=== PATIENT | male | born 1945 | race Caucasian/White ===

== ENCOUNTER 2018-03-05 16:44 | Outpatient (REF) | payer MEDICARE, SELFPAY ==
[2018-03-05 20:50] LABS: COMMENT (LAB VIEW ONLY) 171.51 mg/dL; Microalb ug/mg Crea 114.7 ug/mg Cr
== END 2018-03-05 17:04 ==
LOC: NCHCN 16:44
PROVIDERS: PCP Physician Assistant; Visit Provider Physician Assistant Medical
DX: E11.9 Type 2 diabetes mellitus without complications (principal)
CPT/HCPCS: 82043; 82570

== ENCOUNTER 2018-06-30 15:23 | Outpatient (REF) | payer MEDICARE, SELFPAY ==
[2018-06-30 19:02] LABS: HCT 35.8 % (40.0-50.0); HGB 11.4 g/dL (13.5-17.5); Mean Corp. HGB Concentration 31.8 g/dL (32.0-36.0); Mean Corpuscular Hemoglobin 27.1 pg (27.0-33.0); Mean Corpuscular Volume 85.2 fL (80-95); Mean Platelet Volume 10.8 fL (8.0-11.0); Platelet Count 224 x1000/uL (130-400); RBC Distribution Width 14.5 % (11.8-14.1); White Blood Cell Count 9.29 k/cumm (4.4-10.8)
[2018-06-30 19:15] LABS: ALT 21 U/L (12-78); AST 16 U/L (15-37); Albumin 3.3 g/dL (3.4-5.0); Alkaline Phosphatase 89 U/L (46-116); Anion Gap 8.7 mmol/L (3-11); BUN 15 mg/dL (7-18); Bilirubin, Total 1.2 mg/dL (0.2-1.0); CO2 30.3 mmol/L (21.0-32.0); Calcium 8.3 mg/dL (8.5-10.1); Chloride 100 mmol/L (98-107); Glucose 102 mg/dL (70-100); Potassium 3.8 mmol/L (3.5-5.1); Sodium 139 mmol/L (136-145); Total Protein 6.3 g/dL (6.4-8.2)
== END 2018-06-30 15:43 ==
LOC: NCHCN 15:23
PROVIDERS: PCP Physician Assistant; Visit Provider Physician Assistant Medical
DX: K59.00 Constipation, unspecified (principal); R19.5 Other fecal abnormalities
CPT/HCPCS: 80053; 85027

== ENCOUNTER 2018-09-02 16:14 | Outpatient (REF) | payer MEDICARE, SELFPAY ==
[2018-09-02 19:20] LABS: Iron 36 ug/dL (50-175); Total Iron Binding Capacity 346 ug/dL (250-450); Transferrin Sat 10 % (20-55)
[2018-09-02 19:40] LABS: Ferritin 21 ng/mL (8-388); Vitamin B12 246 pg/mL (193-986)
== END 2018-09-02 16:34 ==
LOC: NCHCN 16:14
PROVIDERS: PCP Physician Assistant; Visit Provider Physician Assistant Medical
DX: D64.9 Anemia, unspecified (principal)
CPT/HCPCS: 82607; 82728; 83540; 83550

== ENCOUNTER → 2018-12-29 11:06 | Outpatient (BNVA) | payer MEDICARE, SELFPAY | PROVIDERS: PCP Physician Assistant; Referring Provider Physician Assistant; Visit Provider Nurse Practitioner Gerontology | DX: N43.3 Hydrocele, unspecified (principal); E11.9 Type 2 diabetes mellitus without complications; I10 Essential (primary) hypertension; Z79.84 Long term (current) use of oral hypoglycemic drugs | CPT/HCPCS: 99204 ==

== ENCOUNTER 2019-04-17 16:08 | Outpatient (REF) | payer MEDICARE, SELFPAY ==
[2019-04-17 18:29] LABS: Anion Gap 5.4 mmol/L (3-11); BUN 23 mg/dL (7-18); CO2 34.6 mmol/L (21.0-32.0); CREATININE 1.33 mg/dL (0.70-1.30); Calcium 8.1 mg/dL (8.5-10.1); Chloride 103 mmol/L (98-107); Glucose 168 mg/dL (74-106); Potassium 3.9 mmol/L (3.5-5.1); Sodium 143 mmol/L (136-145); TSH (W/Ref FT4) 1.72 uIU/mL (0.36-3.74)
== END 2019-04-17 16:28 ==
LOC: NCHCN 16:08
PROVIDERS: PCP Physician Assistant; Visit Provider Physician Assistant
DX: I10 Essential (primary) hypertension (principal)
CPT/HCPCS: 80048; 83735; 84443

== ENCOUNTER → 2019-07-29 10:26 | Outpatient (BNVA) | payer MEDICARE, MEDICAID, SELFPAY | PROVIDERS: PCP Physician Assistant; Referring Provider Physician Assistant; Visit Provider Nurse Practitioner Gerontology | DX: N43.3 Hydrocele, unspecified (principal); E11.9 Type 2 diabetes mellitus without complications; I10 Essential (primary) hypertension | CPT/HCPCS: 99213 ==

== ENCOUNTER 2020-02-17 11:36 | Outpatient (REF) | payer MEDICARE, MEDICAID, SELFPAY ==
[2020-02-17 20:50] LABS: Abs Immature Grans 0.02 10^3/uL (0.0-0.06); Absolute Basophil Count 0.07 10^3/uL (0.0-0.2); Absolute Eosinophil Count 0.25 10^3/uL (0.0-0.7); Absolute Lymphocyte Count 2.12 10^3/uL (1.2-3.4); Absolute Monocyte Count 0.72 10^3/uL (0.1-0.8); Absolute Neutrophil Count 5.18 10^3/uL (1.2-6.7); Basophils % 0.8; HCT 37.6 % (40.0-50.0); HGB 12.4 g/dL (13.5-17.5); Immature Grans % 0.2; Lymphocytes % 25.4; MCV 88.1 fL (80-95); MPV 10.7 fL (8.0-11.0); Monocytes % 8.6; Nucleated RBC 0 %; Platelet Count 255 10^3/uL (130-400); RBC 4.27 10^6/uL (4.36-5.78); RDW 12.9 % (11.8-14.1); RDW-SD 41.4 fL; WBC 8.36 10^3/uL (4.4-10.8)
[2020-02-17 21:21] LABS: COMMENT (LAB VIEW ONLY) 95.56 mg/dL; Microalb ug/mg Crea 11.3 ug/mg Cr
[2020-02-17 21:22] LABS: Hemoglobin A1C 7.3 % (<5.7)
[2020-02-17 21:24] LABS: ALT 22 U/L (16-63); AST 13 U/L (15-37); Albumin 3.6 g/dL (3.4-5.0); Alkaline Phosphatase 85 U/L (46-116); Anion Gap 10.3 mmol/L (3-11); BUN 35 mg/dL (7-18); Bilirubin, Total 0.7 mg/dL (0.2-1.0); CO2 26.7 mmol/L (21.0-32.0); Calcium 8.7 mg/dL (8.5-10.1); Calculated LDL 73 mg/dL (<100); Chloride 100 mmol/L (98-107); Cholesterol 152 mg/dL (<200); Estimated GFR 39.82 (mL/min/1.73m2); Glucose 181 mg/dL (74-106); HDL Cholesterol 31 mg/dL (40-60); Potassium 4.6 mmol/L (3.5-5.1); Sodium 137 mmol/L (136-145); TSH (W/Ref FT4) 2.12 uIU/mL (0.36-3.74); Total Protein 6.5 g/dL (6.4-8.2); Triglyceride 240 mg/dL (<150)
== END 2020-02-17 11:56 ==
LOC: NCHCN 11:36
PROVIDERS: PCP Physician Assistant; Visit Provider Physician Assistant
DX: I10 Essential (primary) hypertension (principal); E11.9 Type 2 diabetes mellitus without complications; I25.10 Atherosclerotic heart disease of native coronary artery without angina pectoris; G47.30 Sleep apnea, unspecified; M25.562 Pain in left knee; J44.9 Chronic obstructive pulmonary disease, unspecified; E66.9 Obesity, unspecified
CPT/HCPCS: 80053; 80061; 82043; 82570; 83036; 84443; 85025

== ENCOUNTER 2020-02-25 22:25 | Outpatient (REF) | payer MEDICARE, MEDICAID, SELFPAY ==
[2020-02-29 15:28] LABS: Albumin, Urine % 19.5 % ((See Note)); Globulins, Urine % 80.5 %; Immunotyping, Urine (See Note); Total Protein Urine 10 mg/dL (See Note)
== END 2020-02-25 22:45 ==
LOC: NCHCN 22:25
PROVIDERS: PCP Physician Assistant; Visit Provider Physician Assistant
DX: N18.32 Chronic kidney disease, stage 3b (principal); E11.9 Type 2 diabetes mellitus without complications; I10 Essential (primary) hypertension
CPT/HCPCS: 84156; 84166; 86335

== ENCOUNTER → 2020-08-03 10:35 | Outpatient (BNVA) | payer MEDICARE, MEDICAID, SELFPAY | PROVIDERS: PCP Physician Assistant; Referring Provider Physician Assistant; Visit Provider Nurse Practitioner Gerontology | DX: N43.2 Other hydrocele (principal) | CPT/HCPCS: 99214 ==

== ENCOUNTER 2021-02-24 16:14 | Outpatient (REF) | payer MEDICARE, MEDICAID, SELFPAY ==
[2021-02-24 20:16] LABS: Anion Gap 7.9 mmol/L (3-11); BUN 37 mg/dL (7-18); CO2 28.1 mmol/L (21.0-32.0); CREATININE 1.6 mg/dL (0.70-1.30); Chloride 102 mmol/L (98-107); Estimated GFR 42.58 (mL/min/1.73m2); Glucose 141 mg/dL (74-106); Potassium 4.6 mmol/L (3.5-5.1); Sodium 138 mmol/L (136-145)
[2021-02-24 20:23] LABS: COMMENT (LAB VIEW ONLY) 16.39 mg/dL; Microalb ug/mg Crea 28.1 ug/mg Cr
== END 2021-02-24 16:15 | disposition home or self-care (01) ==
LOC: NCHCN 16:14
PROVIDERS: PCP Physician Assistant; Visit Provider Physician Assistant
DX: E11.9 Type 2 diabetes mellitus without complications (principal); N18.32 Chronic kidney disease, stage 3b
CPT/HCPCS: 80048; 82043; 82570

== ENCOUNTER → 2021-08-08 14:32 | Outpatient (BNVA) | payer MEDICARE, MEDICAID, SELFPAY | PROVIDERS: PCP Physician Assistant; Referring Provider Physician Assistant; Visit Provider Nurse Practitioner Gerontology | DX: N43.3 Hydrocele, unspecified (principal) | CPT/HCPCS: 99214 ==

== ENCOUNTER 2022-02-21 16:14 | Outpatient (REF) | payer MEDICARE, MEDICAID, SELFPAY ==
[2022-02-21 20:59] LABS: Abs Immature Grans 0.03 10^3/uL (0.0-0.06); Absolute Basophil Count 0.07 10^3/uL (0.0-0.2); Absolute Eosinophil Count 0.22 10^3/uL (0.0-0.7); Absolute Lymphocyte Count 1.82 10^3/uL (1.2-3.4); Absolute Monocyte Count 0.72 10^3/uL (0.1-0.8); Absolute Neutrophil Count 5.97 10^3/uL (1.2-6.7); Basophils % 0.8; Eosinophils % 2.5; HGB 13.3 g/dL (13.5-17.5); Immature Grans % 0.3; Lymphocytes % 20.6; MCH 27.8 pg (27.0-33.0); MCHC 32.4 % (32.0-36.0); MCV 86 fL (80-95); MPV 10.7 fL (8.0-11.0); Monocytes % 8.2; Neutrophils % 67.6; Platelet Count 240 10^3/uL (130-400); RBC 4.79 10^6/uL (4.36-5.78); RDW 13.8 % (11.8-14.1); RDW-SD 43.1 fL; WBC 8.83 10^3/uL (4.4-10.8)
[2022-02-21 21:24] LABS: ALT 18 U/L (16-63); AST 20 U/L (15-37); Albumin 3.6 g/dL (3.4-5.0); Alkaline Phosphatase 82 U/L (46-116); Anion Gap 7.7 mmol/L (3-11); BUN 27 mg/dL (7-18); Bilirubin, Total 0.6 mg/dL (0.2-1.0); CO2 29.3 mmol/L (21.0-32.0); CREATININE 1.7 mg/dL (0.70-1.30); Chloride 100 mmol/L (98-107); Estimated GFR 41.78 (mL/min/1.73m2); Glucose 139 mg/dL (74-106); Potassium 4.3 mmol/L (3.5-5.1); Sodium 137 mmol/L (136-145); Total Protein 6.9 g/dL (6.4-8.2)
== END 2022-02-21 16:15 | disposition home or self-care (01) ==
LOC: NCHCN 16:14
PROVIDERS: PCP Physician Assistant; Visit Provider Physician Assistant
DX: I50.9 Heart failure, unspecified (principal)
CPT/HCPCS: 80053; 85025

== ENCOUNTER → 2022-08-07 14:29 | Outpatient (BNVA) | payer MEDICARE, MEDICAID, SELFPAY | PROVIDERS: PCP Physician Assistant; Visit Provider Nurse Practitioner Gerontology | DX: N43.3 Hydrocele, unspecified (principal); R39.89 Other symptoms and signs involving the genitourinary system | CPT/HCPCS: 99213 ==

== ENCOUNTER 2022-11-16 16:31 | Outpatient (REF) | payer MEDICARE, MEDICAID, SELFPAY ==
[2022-11-16 18:46] LABS: Abs Immature Grans 0.03 10^3/uL (0.0-0.06); Absolute Basophil Count 0.07 10^3/uL (0.0-0.2); Absolute Eosinophil Count 0.11 10^3/uL (0.0-0.7); Absolute Lymphocyte Count 1.16 10^3/uL (1.2-3.4); Absolute Monocyte Count 0.66 10^3/uL (0.1-0.8); Absolute Neutrophil Count 6.56 10^3/uL (1.2-6.7); Basophils % 0.8; Eosinophils % 1.3; HCT 38.6 % (40.0-50.0); Immature Grans % 0.3; Lymphocytes % 13.5; MCH 28.6 pg (27.0-33.0); MCHC 33.7 % (32.0-36.0); MCV 85 fL (80-95); MPV 10.6 fL (8.0-11.0); Monocytes % 7.7; Neutrophils % 76.4; Platelet Count 238 10^3/uL (130-400); RBC 4.55 10^6/uL (4.36-5.78); RDW-SD 43.3 fL; WBC 8.59 10^3/uL (4.4-10.8)
[2022-11-16 19:01] LABS: Anion Gap 8.6 mmol/L (3-11); BUN 19 mg/dL (7-18); CO2 30.4 mmol/L (21.0-32.0); CREATININE 1.5 mg/dL (0.70-1.30); Calcium 8.6 mg/dL (8.5-10.1); Chloride 103 mmol/L (98-107); Estimated GFR 48.25 (mL/min/1.73m2); Glucose 179 mg/dL (74-106); Sodium 142 mmol/L (136-145)
[2022-11-16 19:09] LABS: Bilirubin Negative (Negative); Blood Small (Negative); Clarity Clear (Clear); Glucose Negative (Negative); Ketones Negative (Negative); Leukocyte Esterase Negative (Negative); Nitrite Negative (Negative); Urobilinogen 0.2 mg/dL (Up to 0.2); pH 5.5 (5-8)
[2022-11-17 07:53] LABS: Bacteria Negative HPF (Negative); C & S Indicated? No; Casts 0-2 Hyaline LPF (Negative); Crystals Mod Calcium Oxalate HPF (Negative); Epithelial Cells Rare HPF (Negative); Mucus Trace (Negative); WBC Negative HPF (0-5)
[2022-11-19 10:09] LABS: PSA, Diagnostic 1.1 ng/mL (<=6.5)
== END 2022-11-16 16:32 | disposition home or self-care (01) ==
LOC: NCHCN 16:31
PROVIDERS: PCP Physician Assistant; Visit Provider Internal Medicine
DX: N18.32 Chronic kidney disease, stage 3b (principal); R31.0 Gross hematuria; R79.89 Other specified abnormal findings of blood chemistry
CPT/HCPCS: 80048; 81003; 81015; 84153; 85025; 87086

== ENCOUNTER → 2022-11-22 13:26 | Outpatient (CLI) | payer MEDICARE, MEDICAID, SELFPAY ==
--- NOTE | 2022-11-22 | DI.US_ITS ---
Exam(s) US RENAL EXAM: US RENAL CLINICAL HISTORY: HEMATURIA R31.0. TECHNIQUE: Bean scale, color and spectral Doppler were used. COMPARISON: US US SCROTUM AND CONTENTS from 11/06/2018 FINDINGS: Exam limited by patient body habitus. Renal size in cm: Right: 11.2 left: 12.1 Echogenicity: Normal Hydronephrosis: No Cyst or mass: No Nephrolithiasis: No Bladder:Normal. Both ureteral jets visualized. Prevoid vol:322 Postvoid vol:7 Prostate not visualized. IMPRESSION: No evidence hydronephrosis. No large stones visible. Stones would easily be missed due to due to limitations of patient body hab itus. If there is continued concern, CT could be performed. DATA REPOSITORY:
== END ==
PROVIDERS: PCP Physician Assistant; Visit Provider Internal Medicine
DX: R31.0 Gross hematuria (principal)
CPT/HCPCS: 76770

== ENCOUNTER → 2023-01-07 15:23 | Outpatient (BNVA) | payer MEDICARE, MEDICAID, SELFPAY | PROVIDERS: PCP Physician Assistant; Referring Provider Physician Assistant; Visit Provider Nurse Practitioner Gerontology | DX: R31.0 Gross hematuria (principal) | CPT/HCPCS: 99213 ==

== ENCOUNTER → 2023-01-09 15:09 | Outpatient (BNVA) | payer MEDICARE, MEDICAID, SELFPAY | PROVIDERS: PCP Physician Assistant; Referring Provider Physician Assistant; Visit Provider Podiatrist | DX: L60.0 Ingrowing nail (principal); B35.1 Tinea unguium; B35.3 Tinea pedis; L60.3 Nail dystrophy; E11.319 Type 2 diabetes mellitus with unspecified diabetic retinopathy without macular edema; R60.0 Localized edema; M79.672 Pain in left foot; M79.671 Pain in right foot | CPT/HCPCS: 11750 ==

== ENCOUNTER → 2023-01-24 15:30 | Outpatient (BNVA) | payer MEDICARE, MEDICAID, SELFPAY | PROVIDERS: PCP Physician Assistant; Referring Provider Physician Assistant; Visit Provider Podiatrist | DX: L60.0 Ingrowing nail (principal); B35.3 Tinea pedis; L60.3 Nail dystrophy; E11.319 Type 2 diabetes mellitus with unspecified diabetic retinopathy without macular edema; R60.0 Localized edema; M79.672 Pain in left foot; M79.671 Pain in right foot | CPT/HCPCS: 11750 ==

== ENCOUNTER 2023-03-05 15:11 | Outpatient (REF) | payer MEDICARE, MEDICAID, SELFPAY ==
[2023-03-05 19:10] LABS: Hemoglobin A1C 6.7 % (<5.7)
[2023-03-05 19:33] LABS: COMMENT (LAB VIEW ONLY) 16.56 mg/dL; Microalb ug/mg Crea 32.6 ug/mg Cr
== END 2023-03-05 15:12 | disposition home or self-care (01) ==
LOC: NCHCN 15:11
PROVIDERS: PCP Physician Assistant; Visit Provider Physician Assistant
DX: E11.9 Type 2 diabetes mellitus without complications (principal)
CPT/HCPCS: 82043; 82570; 83036

== ENCOUNTER → 2023-04-29 13:51 | Outpatient (BNVA) | payer MEDICARE, MEDICAID, SELFPAY | PROVIDERS: PCP Physician Assistant; Referring Provider Physician Assistant; Visit Provider Student in an Organized Health Care Education/Training Program | DX: M19.072 Primary osteoarthritis, left ankle and foot (principal) | CPT/HCPCS: 99213 ==

== ENCOUNTER → 2023-07-03 12:35 | Outpatient (BNVA) | payer MEDICARE, SELFPAY | PROVIDERS: PCP Physician Assistant; Referring Provider Physician Assistant; Visit Provider Nurse Practitioner Adult Health | DX: R41.89 Other symptoms and signs involving cognitive functions and awareness (principal) | CPT/HCPCS: 99215 ==

== ENCOUNTER → 2023-09-26 12:11 | Outpatient (BNVA) | payer MEDICARE, SELFPAY | PROVIDERS: PCP Physician Assistant; Referring Provider Physician Assistant; Visit Provider Nurse Practitioner Gerontology | DX: R31.0 Gross hematuria (principal); N43.3 Hydrocele, unspecified | CPT/HCPCS: 81003; 99213 ==

== ENCOUNTER 2023-12-11 16:37 | Outpatient (REF) | payer MEDICARE, SELFPAY ==
[2023-12-11 20:33] LABS: Abs Immature Grans 0.02 10^3/uL (0.0-0.06); Absolute Basophil Count 0.09 10^3/uL (0.0-0.2); Absolute Eosinophil Count 0.28 10^3/uL (0.0-0.7); Absolute Lymphocyte Count 1.64 10^3/uL (1.2-3.4); Absolute Monocyte Count 0.63 10^3/uL (0.1-0.8); Absolute Neutrophil Count 4.65 10^3/uL (1.2-6.7); Basophils % 1.2 %; Eosinophils % 3.8 %; HCT 37.5 % (40.0-50.0); HGB 12.4 g/dL (13.5-17.5); Immature Grans % 0.3 %; Lymphocytes % 22.4 %; MCH 29.2 pg (27.0-33.0); MCHC 33.1 % (32.0-36.0); MCV 88 fL (80-95); MPV 10.4 fL (8.0-11.0); Monocytes % 8.6 %; Neutrophils % 63.7 %; Platelet Count 222 10^3/uL (130-400); RBC 4.24 10^6/uL (4.36-5.78); RDW 13.9 % (11.8-14.1); RDW-SD 44.9 fL; WBC 7.31 10^3/uL (4.4-10.8)
[2023-12-11 20:42] LABS: ALT 21 U/L (16-63); AST 18 U/L (15-37); Albumin 3.4 g/dL (3.4-5.0); Alkaline Phosphatase 88 U/L (46-116); BUN 45 mg/dL (7-18); Bilirubin, Total 0.79 mg/dL (0.2-1.0); CREATININE 2.3 mg/dL (0.70-1.30); Chloride 101 mmol/L (98-107); Estimated GFR 28.71 (mL/min/1.73m2); Glucose 109 mg/dL (74-106); Potassium 4.5 mmol/L (3.5-5.1); Sodium 136 mmol/L (136-145); Total Protein 6.8 g/dL (6.4-8.2)
== END 2023-12-11 16:38 | disposition home or self-care (01) ==
LOC: NCHCN 16:37
PROVIDERS: PCP Physician Assistant; Visit Provider Physician Assistant
DX: E11.9 Type 2 diabetes mellitus without complications (principal)
CPT/HCPCS: 80053; 85025

== ENCOUNTER 2024-03-19 15:17 | Outpatient (REF) | payer MEDICARE, SELFPAY ==
[2024-03-19 19:38] LABS: Bilirubin Negative (Negative); Blood Trace-intact (Negative); Clarity Clear (Clear); Glucose Negative (Negative); Ketones Negative (Negative); Leukocyte Esterase Negative (Negative); Nitrite Negative (Negative); Specific Gravity 1.015 (1.005-1.025); Urobilinogen 0.2 mg/dL (Up to 0.2); pH 5.5 (5-8)
[2024-03-19 19:43] LABS: Bacteria Rare HPF (Negative); C & S Indicated? No; Casts Negative LPF (Negative); Crystals Negative HPF (Negative); Epithelial Cells Rare HPF (Negative); Mucus Negative (Negative); RBC 0-2 HPF (0-2); WBC Negative HPF (0-5)
[2024-03-19 19:51] LABS: Anion Gap 8.3 mmol/L (3-11); BUN 42 mg/dL (7-18); CO2 26.7 mmol/L (21.0-32.0); CREATININE 2.2 mg/dL (0.70-1.30); Calcium 9.4 mg/dL (8.5-10.1); Chloride 107 mmol/L (98-107); Estimated GFR 30.28 (mL/min/1.73m2); Glucose 155 mg/dL (74-106); LDL CHOLESTEROL 77 mg/dL (<100); Potassium 5.1 mmol/L (3.5-5.1); Sodium 142 mmol/L (136-145)
[2024-03-19 20:07] LABS: COMMENT (LAB VIEW ONLY) 31.43 mg/dL; PROTEIN 6.3 mg/dL
== END 2024-03-19 15:18 | disposition home or self-care (01) ==
LOC: NCHCN 15:17
PROVIDERS: PCP Physician Assistant; Visit Provider Physician Assistant
DX: E78.5 Hyperlipidemia, unspecified (principal)
CPT/HCPCS: 80048; 83721; 81003; 81015; 82565; 84156

== ENCOUNTER 2024-04-21 17:06 | Outpatient (REF) | payer MEDICARE, SELFPAY ==
[2024-04-21 19:20] LABS: Abs Immature Grans 0.02 10^3/uL (0.0-0.06); Absolute Basophil Count 0.08 10^3/uL (0.0-0.2); Absolute Eosinophil Count 0.18 10^3/uL (0.0-0.7); Absolute Lymphocyte Count 1.43 10^3/uL (1.2-3.4); Absolute Monocyte Count 0.58 10^3/uL (0.1-0.8); Absolute Neutrophil Count 5.36 10^3/uL (1.2-6.7); Eosinophils % 2.4 %; HCT 36.4 % (40.0-50.0); HGB 11.9 g/dL (13.5-17.5); Immature Grans % 0.3 %; Lymphocytes % 18.7 %; MCH 28.8 pg (27.0-33.0); MCHC 32.7 % (32.0-36.0); MCV 88 fL (80-95); MPV 10.4 fL (8.0-11.0); Monocytes % 7.6 %; Platelet Count 231 10^3/uL (130-400); RBC 4.13 10^6/uL (4.36-5.78); RDW 13.6 % (11.8-14.1); RDW-SD 44.4 fL; WBC 7.65 10^3/uL (4.4-10.8)
[2024-04-21 19:43] LABS: Anion Gap 10.2 mmol/L (3-11); BUN 43 mg/dL (7-18); CO2 26.8 mmol/L (21.0-32.0); CREATININE 2.5 mg/dL (0.70-1.30); Calcium 9.2 mg/dL (8.5-10.1); Chloride 105 mmol/L (98-107); Estimated GFR 25.98 (mL/min/1.73m2); Ferritin 86 ng/mL (26-388); Glucose 141 mg/dL (74-106); Magnesium 1.6 mg/dL (1.8-2.4); Potassium 4.2 mmol/L (3.5-5.1); Sodium 142 mmol/L (136-145)
[2024-04-21 19:47] LABS: Bilirubin Small (Negative); Blood Large (Negative); Clarity Cloudy (Clear); Glucose Negative (Negative); Ketones 15 mg/dL (Negative); Leukocyte Esterase Negative (Negative); Nitrite Negative (Negative); Urobilinogen 0.2 mg/dL (Up to 0.2); pH 5.5 (5-8)
[2024-04-21 19:53] LABS: Bacteria Many HPF (Negative); C & S Indicated? C&S Done As Ordered; Casts Negative LPF (Negative); Crystals Negative HPF (Negative); Epithelial Cells Few HPF (Negative); Mucus Moderate (Negative); Other Cells Negative (Negative); RBC >50 HPF (0-2)
[2024-04-21 20:51] LABS: Iron 48 ug/dL (65-175)
== END 2024-04-21 17:07 | disposition home or self-care (01) ==
LOC: NCHCN 17:06
PROVIDERS: PCP Physician Assistant; Visit Provider Physician Assistant
DX: R31.29 Other microscopic hematuria; D50.9 Iron deficiency anemia, unspecified
CPT/HCPCS: 80048; 81003; 81015; 82728; 83540; 83550; 83735; 85025; 87086

== ENCOUNTER 2024-04-30 13:35 | Outpatient (REF) | payer MEDICARE, SELFPAY ==
[2024-04-30 19:21] LABS: Anion Gap 8.6 mmol/L (3-11); BUN 49 mg/dL (7-18); CO2 27.4 mmol/L (21.0-32.0); CREATININE 2.2 mg/dL (0.70-1.30); Calcium 9.2 mg/dL (8.5-10.1); Chloride 105 mmol/L (98-107); Estimated GFR 30.28 (mL/min/1.73m2); Glucose 149 mg/dL (74-106); Magnesium 1.8 mg/dL (1.8-2.4); Potassium 4.2 mmol/L (3.5-5.1); Sodium 141 mmol/L (136-145)
== END 2024-04-30 13:36 | disposition home or self-care (01) ==
LOC: NCHCN 13:35
PROVIDERS: PCP Physician Assistant; Visit Provider Physician Assistant
DX: N18.9 Chronic kidney disease, unspecified (principal); E83.42 Hypomagnesemia
CPT/HCPCS: 80048; 83735

== ENCOUNTER 2024-05-25 15:14 | Outpatient (REF) | payer MEDICARE, SELFPAY ==
[2024-05-25 19:40] LABS: Anion Gap 6.4 mmol/L (3-11); BUN 72 mg/dL (7-18); CO2 29.6 mmol/L (21.0-32.0); CREATININE 2.7 mg/dL (0.70-1.30); Calcium 9.3 mg/dL (8.5-10.1); Chloride 105 mmol/L (98-107); Estimated GFR 23.68 (mL/min/1.73m2); Glucose 189 mg/dL (74-106); Magnesium 2.1 mg/dL; Potassium 4.5 mmol/L (3.5-5.1); Sodium 141 mmol/L (136-145)
== END 2024-05-25 15:15 | disposition home or self-care (01) ==
LOC: NCHCN 15:14
PROVIDERS: PCP Physician Assistant; Visit Provider Physician Assistant
DX: N18.9 Chronic kidney disease, unspecified (principal)
CPT/HCPCS: 80048; 83735

== ENCOUNTER → 2024-06-03 13:58 | Outpatient (BNVA) | payer MEDICARE, SELFPAY | PROVIDERS: PCP Physician Assistant; Referring Provider Physician Assistant; Visit Provider Nurse Practitioner Gerontology | DX: R31.0 Gross hematuria (principal); N43.3 Hydrocele, unspecified | CPT/HCPCS: 99213 ==

== ENCOUNTER 2024-06-23 02:10 | Outpatient (CLI) | payer MEDICARE, SELFPAY ==
--- NOTE | 2024-06-23 07:45 | DI.US_ITS ---
Exam(s) US RENAL EXAM: US RENAL CLINICAL HISTORY: hematuria,r31.0 TECHNIQUE: Ultrasound of both kidneys performed using standard protocol. COMPARISON: US US RENAL from 11/22/2022 FINDINGS: RIGHT KIDNEY: Measures 12 cm in length. No cysts evident. Normal cortical thickness and corticomedullary differenti ation .No solid masses No intrarenal calculi nor hydronephrosis. LEFT KIDNEY: Measures 11 cm in length. There is a 3.4 x 3.0 cm cyst in the inferior pole of the left kidney. Nor mal cortical thickness and corticomedullary differentiaion. No solids masses. No intrarenal calculi nor hydonephrosis. URINARY BLADDER: Prevoid volume is 100 cc Postvoid volume is 5 cc No evidence of bladder mass nor diverticuli. Ureterovesical jets: Both identified and appear symmetrical PROSTATE GLAND: Mildly enlarged, measuring 3.4 x 3.0 x 4.1 cm; volume 22 mL IMPRESSION: 1. No significant ultrasound findings in the kidneys. 2. No obvious focal abnormality in the urinary bladder. Also no abnormally increased postvoid resid ual urinary bladder volume DATA REPOSITORY:
== END 2024-06-23 02:30 ==
LOC: DI 02:10
PROVIDERS: PCP Physician Assistant; Visit Provider Nurse Practitioner Gerontology
DX: R31.0 Gross hematuria (principal)
CPT/HCPCS: 76770

== ENCOUNTER 2024-07-21 17:41 | Outpatient (REF) | payer MEDICARE, SELFPAY ==
[2024-07-21 20:21] LABS: Abs Immature Grans 0.04 10^3/uL (0.0-0.06); Absolute Basophil Count 0.06 10^3/uL (0.0-0.2); Absolute Eosinophil Count 0.12 10^3/uL (0.0-0.7); Absolute Monocyte Count 0.74 10^3/uL (0.1-0.8); Absolute Neutrophil Count 5.65 10^3/uL (1.2-6.7); Basophils % 0.8 %; Eosinophils % 1.5 %; HCT 30.6 % (40.0-50.0); HGB 9.9 g/dL (13.5-17.5); Immature Grans % 0.5 %; Lymphocytes % 16.4 %; MCH 28.4 pg (27.0-33.0); MCHC 32.4 % (32.0-36.0); MCV 88 fL (80-95); MPV 9.7 fL (8.0-11.0); Monocytes % 9.4 %; Neutrophils % 71.4 %; Platelet Count 323 10^3/uL (130-400); RBC 3.49 10^6/uL (4.36-5.78); RDW 13.6 % (11.8-14.1); RDW-SD 43.7 fL; WBC 7.91 10^3/uL (4.4-10.8)
[2024-07-21 20:38] LABS: ALT 18 U/L (16-63); AST 15 U/L (15-37); Albumin 2.8 g/dL (3.4-5.0); Alkaline Phosphatase 79 U/L (46-116); Anion Gap 10.3 mmol/L (3-11); BUN 57 mg/dL (7-18); Bilirubin, Total 0.5 mg/dL (0.2-1.0); CO2 24.7 mmol/L (21.0-32.0); CREATININE 3.1 mg/dL (0.70-1.30); Chloride 105 mmol/L (98-107); Estimated GFR 19.94 (mL/min/1.73m2); Glucose 131 mg/dL (74-106); Potassium 4.3 mmol/L (3.5-5.1); Sodium 140 mmol/L (136-145); Total Protein 6.5 g/dL (6.4-8.2)
== END 2024-07-21 17:42 | disposition home or self-care (01) ==
LOC: NCHCN 17:41
PROVIDERS: PCP Physician Assistant; Visit Provider Physician Assistant
DX: E13.9 Other specified diabetes mellitus without complications (principal)
CPT/HCPCS: 80053; 85025

== ENCOUNTER → 2024-07-23 13:21 | Outpatient (BNVA) | payer MEDICARE, SELFPAY | PROVIDERS: PCP Physician Assistant; Referring Provider Physician Assistant; Visit Provider Nurse Practitioner Gerontology | DX: R31.0 Gross hematuria (principal) | CPT/HCPCS: 99213 ==

== ENCOUNTER 2024-07-28 18:52 | Outpatient (REF) | payer MEDICARE, SELFPAY ==
[2024-07-28 19:23] LABS: Abs Immature Grans 0.04 10^3/uL (0.0-0.06); Absolute Basophil Count 0.06 10^3/uL (0.0-0.2); Absolute Eosinophil Count 0.13 10^3/uL (0.0-0.7); Absolute Lymphocyte Count 1.13 10^3/uL (1.2-3.4); Absolute Monocyte Count 0.79 10^3/uL (0.1-0.8); Absolute Neutrophil Count 8.21 10^3/uL (1.2-6.7); Basophils % 0.6 %; Eosinophils % 1.3 %; HGB 10.3 g/dL (13.5-17.5); Immature Grans % 0.4 %; Lymphocytes % 10.9 %; MCH 28.3 pg (27.0-33.0); MCHC 32.2 % (32.0-36.0); MCV 88 fL (80-95); MPV 9.7 fL (8.0-11.0); Monocytes % 7.6 %; Neutrophils % 79.2 %; Platelet Count 296 10^3/uL (130-400); RBC 3.64 10^6/uL (4.36-5.78); RDW 13.7 % (11.8-14.1); RDW-SD 43.9 fL; WBC 10.36 10^3/uL (4.4-10.8)
[2024-07-28 19:33] LABS: Anion Gap 8.5 mmol/L (3-11); BUN 42 mg/dL (7-18); CO2 27.5 mmol/L (21.0-32.0); CREATININE 2.2 mg/dL (0.70-1.30); Calcium 9.3 mg/dL (8.5-10.1); Chloride 107 mmol/L (98-107); Estimated GFR 30.09 (mL/min/1.73m2); Glucose 143 mg/dL (74-106); Potassium 4.7 mmol/L (3.5-5.1); Sodium 143 mmol/L (136-145)
== END 2024-07-28 18:53 | disposition home or self-care (01) ==
LOC: NCHCN 18:52
PROVIDERS: PCP Physician Assistant; Visit Provider Physician Assistant
DX: N18.4 Chronic kidney disease, stage 4 (severe) (principal)
CPT/HCPCS: 80048; 85025

== ENCOUNTER 2024-08-28 14:57 | Outpatient (REF) | payer MEDICARE, SELFPAY ==
[2024-08-28 19:23] LABS: Magnesium 1.4 mg/dL (1.8-2.4)
== END 2024-08-28 14:58 | disposition home or self-care (01) ==
LOC: NCHCN 14:57
PROVIDERS: PCP Physician Assistant; Visit Provider Physician Assistant
DX: I50.9 Heart failure, unspecified (principal)
CPT/HCPCS: 83735

== ENCOUNTER 2024-09-24 14:27 | Outpatient (REF) | payer MEDICARE, SELFPAY ==
[2024-09-24 19:54] LABS: Magnesium 1.6 mg/dL (1.8-2.4)
[2024-09-25 18:17] LABS: Total Protein 6.1 g/dL (6.3-8.2)
[2024-09-28 09:36] LABS: HIV-1/2 Ag & Ab Screen Negative (Negative)
[2024-09-28 09:58] LABS: Hepatitis C Ab w Rflx HCV PCR Negative (Negative)
[2024-09-28 13:06] LABS: Albumin 54.2 % (55.8-66.1); Albumin g/dL 3.3 g/dL (3.6-5.2); Alpha 1 g/dL 0.40 g/dL (0.15-0.40); Alpha 2 g/dL 0.90 g/dL (0.50-1.00); Beta g/dL 0.70 g/dL (0.60-1.20); Gamma g/dL 0.70 g/dL (0.60-1.60)
[2024-09-28 15:02] LABS: Albumin, Urine % 9.5 %; Albumin, Urine mg/dL 1 mg/dL; Globulins, Urine % 90.5 %; Globulins, Urine mg/dL 8 mg/dL
== END 2024-09-24 14:28 | disposition home or self-care (01) ==
LOC: NCHCN 14:27
PROVIDERS: PCP Physician Assistant; Visit Provider Physician Assistant
DX: E13.29 Other specified diabetes mellitus with other diabetic kidney complication (principal); E83.42 Hypomagnesemia
CPT/HCPCS: 84156; 84166; 86335; 86803; 87389; 83735; 84165

== ENCOUNTER 2024-10-09 07:03 | Day surgery (SDC) | payer MEDICARE, SELFPAY ==
[2024-10-09] MEDS: Tropicam./Phenyleph. (1/2.5%) 5 ML BTL OS ×3 (07:34→07:54)
[2024-10-09 07:36] VITALS: BP 119/61; PULSE 65; RESP 19; TEMP 36.6; O2SAT 97
--- NOTE | 2024-10-09 08:21 | W.ANESPRE ---
General Info Date of Service Date Performed: 10/09/24 Height: 5 ft 11 in Weight: 124.3 kg Body Mass Index (BMI): 38.2 Surgical Procedure: Operation Date: 10/09/24 09:40 Proposed Procedure Side Surgeon p Cataract Extraction with IOL Implant Left Chase Paul MD Meds Allergies and Home Medications Allergies Allergy/AdvReac Type Severity Reaction Status Date / Time No Known Allergies Allergy Verified 10/09/24 07:43 Home Medication ?Medication ?Instructions ?Recorded albuterol sulfate 90 mcg/actuation 2 puff inhalation Q4H PRN 12/17/18 aerosol inhaler (Ventolin HFA) aspirin 81 mg tablet,delayed 81 mg PO DAILY 12/17/18 release (Adult Low Dose Aspirin) atenolol 100 mg tablet 100 mg PO DAILY 12/17/18 atorvastatin 40 mg tablet 40 mg PO DAILY 12/17/18 blood sugar diagnostic (OneTouch #10 ea 12/17/18 Ultra Blue Test Strip) lancets (KuTouch UltraSoft #50 ea 12/17/18 Lancets) omeprazole 20 mg capsule,delayed 20 mg PO DAILY 12/17/18 release sitagliptin phos 50 mg-metformin 1 tab PO BID 12/17/18 ER 1,000 mg tablet,extend rel 24h mp (Janumet XR) loratadine 10 mg tablet 10 mg PO DAILY 08/08/21 magnesium 200 mg tablet 400 mg PO BID 08/08/21 ropinirole 0.5 mg tablet 0.5 mg PO DAILY 08/08/21 semaglutide 1 mg/dose (2 mg/1.5 1 mg subcut QWEEK 08/08/21 mL) subcutaneous pen injector (Ozempic) fluticasone fur. 100 mcg-umeclid 1 inh inhalation DAILY 03/22/22 62.5 mcg-vilant 25 mcg inhalat.powder (Trelegy Ellipta) fluticasone propionate 50 2 spray intranasal DAILY 03/22/22 mcg/actuation nasal spray,suspension terazosin 5 mg capsule 5 mg PO DAILY 03/22/22 glucosamine-chondroitin 250 mg-200 See Rx Instructions PO .QD 01/08/23 mg tablet (Osteo Bi-Flex) spironolactone 25 mg tablet 25 mg PO DAILY 01/08/23 ketoconazole 2 % topical cream 1 applic topical DAILY 3 months 01/09/23 #60 grams custom ankle brace #1 ea 05/14/23 chlorthalidone 25 mg tablet 25 mg PO DAILY 07/01/23 cyanocobalamin (vitamin B-12) 1,000 mcg PO DAILY 04/28/24 1,000 mcg capsule donepezil 5 mg tablet 5 mg PO DAILY 04/28/24 ipratropium 0.5 mg-albuterol 3 mg 3 ml inhalation Q6H PRN 04/28/24 (2.5 mg base)/3 mL nebulization soln potassium chloride 20 mEq 20 meq PO DAILY 04/28/24 tablet,extended release sacubitril 24 mg-valsartan 26 mg 1 tab PO BID 04/28/24 tablet (Entresto) metolazone 2.5 mg tablet 2.5 mg PO DAILY 06/03/24 Current Visit Medications: Current Medications Generic Name Dose Route Start Last Admin Trade Name Freq PRN Reason Stop Dose Admin Acetaminophen 1,000 mg 10/09/24 06:00 Acetaminophen 500 Mg Tab PO 11/08/24 05:59 Q4H PRN PRN Balanced Salt Solution 500 ml 10/09/24 06:00 Balanced Salt Soln.-Plus 500 Ml Bag OP 11/08/24 05:59 DIRECTED [facility] Miscellaneous Medication 0 ml 10/09/24 06:00 Prednisolone 1%, Moxifloxacin 0.5%, Bromfenac 0.09% 5.6ml Btl OS 11/08/24 05:59 DIRECTED [facility] Miscellaneous Medication 0 ml 10/09/24 06:00 10/09/24 07:54 Tropicam./Phenyleph. (1/2.5%) 5 Ml Btl OS 11/08/24 05:59 1 drp DIRECTED [facility] Administration Tetracaine HCl 0 ml 10/09/24 06:00 Tetracaine 0.5% 4 Ml Btl OS 11/08/24 05:59 DIRECTED [facility] PFSH Active Problems Active Problems: Problem Status Onset Code Posterior subcapsular age-related cataract of left eye Acute H25.042 Nuclear age-related cataract, left eye Acute H25.12 Cognitive impairment Acute R41.89 Osteoarthritis of left ankle Acute M19.072 Pain in right foot Acute M79.671 Pain in left foot Acute M79.672 Ingrown toenail Acute L60.0 Tinea pedis Acute B35.3 Heart failure Acute I50.9 Left knee DJD Acute M17.12 NIAN (obstructive sleep apnea) Chronic G47.33 CKD stage 3 secondary to diabetes Acute E11.22, N18.30 Pulmonary hypertension Acute I27.20 Periodic limb movement disorder Acute G47.61 Onychia and paronychia of toe Acute L03.039 Nail dystrophy Acute L60.3 ASCVD (arteriosclerotic cardiovascular disease) Chronic I25.10 COPD (chronic obstructive pulmonary disease) Chronic J44.9 BMI 40.0-44.9, adult Acute Z68.41 Diabetic retinopathy Acute E11.319 Diabetes type 2, controlled Acute E11.9 Uses hearing aid Acute Z97.4 Dental decay Acute K02.9 Xerostomia Acute R68.2 Sensorineural hearing loss of both ears Acute H90.3 Hyperlipidemia Acute E78.5 Hypertension Chronic I10 Edema Acute R60.9 Anemia Chronic D64.9 Bilateral hydrocele Acute N43.3 Medical History Medical History Dementia Per D-I-L in the beginning stages, but still signs for himself Pain, joint, knee, right CKD (chronic kidney disease), stage III Atherosclerosis of coronary artery Pain in thoracic spine Arthralgia of ankle Idiopathic osteoarthritis Hydrocele of testis [place] hematuria Posterior rhinorrhea Essential hypertension Hearing loss Anemia, iron deficiency Type 2 diabetes mellitus Tubulovillous adenoma of colon Foreign body of ear, left Pain, foot Malfunction of myringotomy tube Obesity Lumbosacral strain Nasal congestion Occult blood in stools Back pain Sciatica Constipation Surgical History Surgical History Status post surgical removal of nail matrix of toe of right foot Tobacco Smoking/Tobacco Use Status: Former Tobacco Use Passive smoking exposure: No Alcohol Alcohol Intake: former Substance Use Substance use: Never Substance use type: does not use Vital Signs and Lab Results Vital Signs Most Recent Vital Signs in EMR: Most Recent Vital Signs Temp Pulse Resp BP Pulse Ox 36.6 C 65 19 119/61 97 10/09/24 07:36 10/09/24 07:36 10/09/24 07:36 10/09/24 07:36 10/09/24 07:36 Point of Care Results Point of Care Results: Finger Stick Blood Glucose 118 10/09/24 07:23 Lab Results Complete Metabolic Panel: Magnesium, (1.8-2.4) 1.6 mg/dL L 09/24/24, 09:00 Infectious Disease: HIV 1&2 Ag/Ab, 4th Gen, (Negative) Negative 09/24/24, 09:00 Hepatitis C Antibody, (Negative) Negative 09/24/24, 09:00 Anesthesia Assessment and Plan Anesthesia History Personal History: No History of Anesthesia Complications Family History: No Family History of Anesthesia Complications Exercise Tolerance Exercise Tolerance: Metabolic Equivalents<4 Pertinent Negatives Pertinent Negatives: No Major Cardiovascular Symptoms or Complaints and No Major Pulmonary Symptoms or Complaints Cardiac & Pulmonary Exam Cardiac Exam: Normal S1/S2 Heart Sounds Pulmonary Exam: Clear Bilateral Breath Sounds Implantable Cardiac Device Does patient have a Pacemaker or an ICD?: No Airway Exam Known Difficult Airway: No Mallampati Class: 3 Mouth Opening: Normal (> 3cm) Thyromental Distance: Greater than 3 cm Neck Range of Motion: Full ROM Neck Circumference: Thick Teeth Condition: Normal Dentition ASA Classification ASA Score: ASA 3 Emergency Case?: No NPO Status NPO Status: NPO Clears >2 hours, Solids >8 hours Anesthesia Plan Resuscitation Status: Full Code Anesthesia Technique: MAC Anesthesia Airway Planned: Natural Airway Monitors Used: Standard Monitors Preoperative Comments:: Post nasal gtt, took allergy medicine, loratadine, this am.
[2024-10-09 08:23] VITALS: BMI 38.2
[2024-10-09] MEDS: Duovisc Viscoelastic System EACH 1 EACH (08:42)
[2024-10-09] MEDS: Lidocaine 1% Pres-Free 5 ML VIAL (08:42)
[2024-10-09] MEDS: Moxifloxacin-PF 1 MG/ML VIAL (08:43)
[2024-10-09] MEDS: Phenylephrine/Lidocaine (15/10) MG/ML 1 ML VIAL (08:44)
[2024-10-09] MEDS: Povidone-Iodine Ophth 30 ML BTL (08:45)
[2024-10-09] MEDS: Balanced Salt Soln.-PLUS 500 ML BAG OP (08:46)
[2024-10-09] MEDS: Trypan Blue 0.06% 0.5 ML SYR (08:46)
[2024-10-09] MEDS: Prednisolone 1%, Moxifloxacin 0.5%, Bromfenac 0.09% 5.6ML BTL OS (08:47)
[2024-10-09] MEDS: Tetracaine 0.5% 4 ML BTL OS (08:49)
[2024-10-09] MEDS: Hyaluronate Sodium 0.85 ML SYR (09:07)
--- NOTE | 2024-10-09 09:26 | ROE_ITS ---
Operative Note Operative Note PRE-OP DIAGNOSIS: Nuclear/posterior subcapsular cataract, left eye POST-OP DIAGNOSIS: same PROCEDURE: Cataract extraction using phacoemulsification with intraocular lens implant, left eye SURGEON: Chase Paul ANESTHESIA TYPE: Local By Surgeon and MAC Refer to Anesthesia Record PATHOLOGY: none sent COMPLICATIONS: None Patient was transported to: same day Patient's condition: stable Implants: Ham [place] [id number] Indications: Progressive decreased vision due to cataract, left eye Procedure Description: CATARACT SURGERY OPERATIVE REPORT PREOPERATIVE DIAGNOSIS: Nuclear/posterior subcapsular cataract, left eye POSTOPERATIVE DIAGNOSIS: Same OPERATION: Cataract extraction using phacoemulsification with posterior chamber intraocular lens implant, left eye. IOL: IOL Clinical Outcomes Manager/Model: Ham [place] [id number] IOL Power: + 21.5 diopters IOL Serial Number: [id number] Optic Diameter: 6.0mm Haptic/Overall Diameter: 13.0mm PHACO INFO: Ham Centurion Vision System with OZil and Active Fluidics Cumulative Dispersed Energy (CDE): 19.14 seconds SURGEON: Chase Paul MD, VAZQUEZ ANESTHESIA: Monitored Anesthesia Care (MAC), with local sub-tenon's anesthetic infiltration COMPLICATIONS: None SPECIMENS: None INDICATIONS FOR PROCEDURE: The patient is a 79-year-old male with history of diminished visual acuity in his left eye secondary to the development of nuclear/posterior subcapsular cataract. He is significantly symptomatic that he desires cataract surgery in attempt to improve and maximize his vision. The option of cataract surgery was offered to the patient and he wished to proceed. See office notes for detailed information. PROCEDURE: The correct surgical eye was identified and marked as the left eye and the pupil was dilated in the preoperative area using mydriatics and cycloplegics. The dilated pupil size was 4.5 mm. The patient elected to proceed without oral sedation. The patient was brought to the operating room where cardiopulmonary monitoring was instituted and surgical time-out was performed, confirming the correct operative eye and IOL power. Topical anesthesia was administered and ophthalmic povidone-iodine 5% was instilled into the conjunctival fornices. The zaria-ocular area was prepped with Betadine 10% solution and draped in the usual sterile fashion for intraocular surgery, including an aperture drape. A Tegaderm transparent film dressing was cut in half and used to cover the lashes and lid margins. Care was taken to sequester the lashes and lid margins under the Tegaderm dressing. A lid speculum was placed between the lids of the operative eye and the Ham LuxOR Revalia operating microscope was maneuvered into position. Darius scissors were then used to make a conjunctival buttonhole approximately 6mm posterior to the limbus in the inferonasal quadrant. Blunt dissection was carried out to expose bare sclera, and a blunt-tipped sub-tenon?s anesthesia cannula was introduced and passed posteriorly along the globe where non- preserved plain lidocaine was injected into posterior sub-Tenon?s space. A sideport knife was used to make a paracentesis port. VisionBlue was injected into the anterior chamber and allowed to sit for 30 seconds. Intraocular phenylephrine/lidocaine was injected into the anterior chamber. The anterior chamber was then filled with viscoelastic. Viscoat dilation was used to achieve a pupil diameter of 5.0 mm. A keratome knife was used construct a two-plane clear corneal tunnel extending 2.0mm into clear cornea. A flap was raised on the anterior capsule and capsulorhexis forceps were used to complete a continuous curvilinear capsulorhexis of 5.0 mm. Balanced salt solution was then used to perform cortical cleaving hydrodissection. The lens nucleus was then disassembled and removed within the capsular bag and iris plane using phacoemulsification. The pupil constricted to 3.5 mm during phacoemulsification, making visualization challenging. The deep central groove was sculpted into the nucleus, but it could not be rotated. Additional Hydrodissection was undertaken. The anterior chamber was noted to be quite deep with loose zonules. The lens still refused to rotate despite extensive [place] dissection. Nucleus splitters were then used to crack the nucleus into 2 halves. Each half was then gently teased out of the capsular bag and removed at the iris plane. Residual cortical material was removed using the irrigation/aspiration handpiece. The posterior capsule was carefully polished to remove as much residual lens epithelial cells as safely possible. The capsular bag was then inflated and the anterior chamber deepened with viscoelastic. The lens implant described above was inserted into the capsular bag using the Ham Aut[place] Injector. A Kuglen hook was used to dial the IOL into position. Residual viscoelastic was then removed first from posterior to the IOL, then from the anterior chamber using the I/A handpiece. The lens implant was noted to center nicely within the capsular bag. The incisions were stromally hydrated, and the anterior chamber was reformed using BSS. Then 0.5cc of moxifloxacin 1.0mg/ml were injected into the capsular bag and anterior chamber. The incisions were checked with a Weck spear and found to be secure. Several drops of ophthalmic povidone-iodine 5% were then applied to the eye followed by two drops of combination steroid/NSAID/antibiotic solution. The drapes were removed and a clear plastic protective eye shield was placed over the eye. The patient was then returned to Same Day Surgery in stable condition. Date of Procedure: 10/09/24
--- NOTE | 2024-10-09 09:26 | W.PM.DSUDISC ---
Date of service: 10/09/24 Discharge Plan Disposition Patient Disposition: Home Discharge Details Attending Provider: Chase Paul Primary Care Provider: Mara Anton Home Meds and New Rx's Prescriptions: No Action albuterol sulfate [Ventolin HFA] 90 mcg/actuation HFA aerosol inhaler 2 puff IH Q4H PRN omeprazole 20 mg capsule,delayed release(DR/EC) 20 mg PO DAILY Janumet XR 50-1,000 mg tablet, ER multiphase 24 hr 1 tab PO BID atorvastatin 40 mg tablet 40 mg PO DAILY atenolol 100 mg tablet 100 mg PO DAILY aspirin [Adult Low Dose Aspirin] 81 mg tablet,delayed release (DR/EC) 81 mg PO DAILY (DME) lancets [OneTouch UltraSoft Lancets] Misc See Rx Instructions .ROUTE .MEDSUPPLY Qty: 50 Rx Instructions: As directed (DME) OneTouch Ultra Blue Test Strip Strip See Rx Instructions .ROUTE .MEDSUPPLY Qty: 10 Rx Instructions: As directed fluticasone propionate 50 mcg/actuation spray,suspension 2 spray intranasal DAILY Rx Instructions: administer into each nostril terazosin 5 mg capsule 5 mg PO DAILY Trelegy Ellipta 100-62.5-25 mcg blister with device 1 inh inhalation DAILY glucosamine-chondroitin [Osteo Bi-Flex] 250-200 mg tablet See Rx Instructions PO .QD Rx Instructions: orally QD; spironolactone 25 mg tablet 25 mg PO DAILY ketoconazole 2 % cream 1 applic topical DAILY 90 Days Qty: 60 3RF Rx Instructions: Apply to toenails once daily metolazone 2.5 mg tablet 2.5 mg PO DAILY magnesium 200 mg tablet 400 mg PO BID ropinirole 0.5 mg tablet 0.5 mg PO DAILY Ozempic 1 mg/dose (2 mg/1.5 mL) pen injector 1 mg subcut QWEEK loratadine 10 mg tablet 10 mg PO DAILY (DME) custom ankle brace See Rx Instructions .Route .MEDSUPPLY Qty: 1 0RF Rx Instructions: As directed chlorthalidone 25 mg tablet 25 mg PO DAILY cyanocobalamin (vitamin B-12) 1,000 mcg capsule 1,000 mcg PO DAILY donepezil 5 mg tablet 5 mg PO DAILY Entresto 24-26 mg tablet 1 tab PO BID ipratropium-albuterol 0.5 mg-3 mg(2.5 mg base)/3 mL solution for nebulization 3 ml inhalation Q6H PRN potassium chloride 20 mEq tablet extended release 20 meq PO DAILY Discharge Instructions Stand Alone Forms: [facility] Post-Op Cataract, Halima Ghosh ([facility]) Discharge Orders Discharge Orders: Discharge Order (Routine); Ordered 10/09/24 Ordered By: Chase Paul DS: Diagnosis Discharge Diagnosis (1) Posterior subcapsular age-related cataract of left eye: Status: Resolved (2) Nuclear age-related cataract, left eye: Status: Resolved
[2024-10-09 09:31] VITALS: BP 131/63; PULSE 66; RESP 14; TEMP 36.2; O2SAT 98
--- NOTE | 2024-10-09 09:56 | W.ANESPOSTOP ---
Postoperative Evaluation Date, Time and Location Date Performed: 10/09/24 Time Performed: 09:30 Patient Location: Day Surgery Unit Vital Signs Most Recent Imported Vital Signs: Most Recent Vital Signs Temp Pulse Resp BP Pulse Ox 36.2 C L 66 14 131/63 98 10/09/24 09:31 10/09/24 09:31 10/09/24 09:31 10/09/24 09:31 10/09/24 09:31 Pain Score Most Recent Pain Score: Most Recent Pain Score Pain Level 0 10/09/24 09:31 Assessment Mental Status: Awake (Alert & Oriented to Patient Baseline) Airway and Respiratory Function: Patent airway with normal (patient baseline) respiratory exam Cardiovascular Function: Hemodynamically Stable Hydration Status: Adequately Hydrated Nausea & Vomiting: No Nausea or Vomiting Pain: Pt. Denies Any Pain Peripheral Nerve Block: Patient did not receive a nerve block
== END 2024-10-09 09:48 | disposition home or self-care (01) ==
PROVIDERS: PCP Physician Assistant; Visit Provider Ophthalmology
PROC: (CPT 66984; principal; 2024-10-09 09:30)
DX: H25.042 Posterior subcapsular polar age-related cataract, left eye (principal); H25.12 Age-related nuclear cataract, left eye
CPT/HCPCS: 66984; 00123; V2632; J2003; J7325

== ENCOUNTER 2024-10-23 07:07 | Day surgery (SDC) | payer MEDICARE, SELFPAY ==
--- NOTE | 2024-10-23 06:20 | ANES.PREOP_ITS ---
General Info Date of Service Date Performed: 10/23/24 Height: 5 ft 11 in Weight: 124.3 kg Body Mass Index (BMI): 38.2 Surgical Procedure: Operation Date: 10/23/24 10:10 Proposed Procedure Side Surgeon p Cataract Extraction with IOL Implant Right Chase Paul MD Meds Allergies and Home Medications Allergies Allergy/AdvReac Type Severity Reaction Status Date / Time No Known Allergies Allergy Verified 10/23/24 07:28 Home Medication ?Medication ?Instructions ?Recorded albuterol sulfate 90 mcg/actuation 2 puff inhalation Q 4H PRN 12/17/18 aerosol inhaler (Ventolin HFA) aspirin 81 mg tablet,delayed 81 mg PO DAILY 12/17/18 release (Adult Low Dose Aspirin) atenolol 100 mg tablet 100 mg PO DAILY 12/17/18 atorvastatin 40 mg tablet 40 mg PO DAILY 12/17/18 blood sugar diagnostic ([employer]Touch #10 ea 12/17/18 Ultra Blue Test Strip) lancets ([employer]Touch UltraSoft #50 ea 12/17/18 Lancets) omeprazole 20 mg capsule,delayed 20 mg PO DAILY release sitagliptin phos 50 mg-metformin 1 tab PO BID 12/17/18 ER 1,000 mg tablet,extend rel 24h mp (Janumet XR) loratadine 10 mg tablet 10 mg PO DAILY 08/08/21 magnesium 200 mg tablet 400 mg PO BID 08/08/21 ropinirole 0.5 mg tablet 0.5 mg PO DAILY 08/08/21 semaglutide 1 mg/dose (2 mg/1.5 1 mg subcut QWEEK 07/11 04/01 mL) subcutaneous pen injector (Ozempic) fluticasone fur. 100 mcg-umeclid 1 inh inhalation DERRELL Y 03/22/22 62.5 mcg-vilant 25 mcg inhalat.powder (Trelegy Ellipta) fluticasone propionate 50 2 spray intranasal DAILY 03/02 mcg/actuation nasal spray,suspension terazosin 5 mg capsule 5 mg PO DAILY 03/22/22 glucosamine-chondroitin 250 mg-200 See Rx Instructions PO .QD 01/08/23 mg tablet (Osteo Bi-Flex) spironolactone 25 mg tablet 25 mg PO DAILY 01/08/23 ketoconazole 2 % topical cream 1 applic topical DAILY 3 months 01/09/23 #60 grams custom ankle brace #1 ea 05/14/23 chlorthalidone 25 mg tablet 25 mg PO DAILY 07/01/23 cyanocobalamin (vitamin B-12) 1,000 mcg PO DAILY 04/28 1,000 mcg capsule donepezil 5 mg tablet 5 mg PO HS 04/28/24 ipratropium 0.5 mg-albuterol 3 mg 3 ml inhalation Q6H PRN 04/28/24 (2.5 mg base)/3 mL nebulization soln potassium chloride 20 mEq 20 meq PO DAILY 04/28/24 tablet,extended release sacubitril 24 mg-valsartan 26 mg 1 tab PO BID 04/28/24 tablet (Entresto) metolazone 2.5 mg tablet 2.5 mg PO DAILY 06/03/24 Current Visit Medications: Current Medications Generic Name Dose Route Start Last Admin Trade Name Freq PRN Reason Stop Dose Admin Acetaminophen 1,000 mg 10/23/24 06:00 Acetaminophen 500 Mg Tab PO 11/22/24 05:59 Q4H PRN PRN Balanced Salt Solution 500 ml 10/23/24 06:00 Balanced Salt Soln.-Plus 500 Ml Bag OP 11/22/24 05:59 DIRECTED [facility] Miscellaneous Medication 0 ml 10/23/24 06:00 Prednisolone 1%, Moxifloxacin 0.5%, Bromfenac 0.09% 5.6ml Btl OD 11/22/24 05:59 DIRECTED [facility] Miscellaneous Medication 0 ml 10/23/24 06:00 Tropicam./Phenyleph. (1/2.5%) 5 Ml Btl OD 11/22/24 05:59 DIRECTED [facility] Tetracaine HCl 0 ml 10/23/24 06:00 Tetracaine 0.5% 4 Ml Btl OD 11/22/24 05:59 DIRECTED [facility] PFSH Active Problems Active Problems: Problem Status Onset Code Nuclear age-related cataract, right eye Acute H25.11 Posterior subcapsular age-related cataract of left eye Resolved H25.042 Nuclear age-related cataract, left eye Resolved H25.12 Cognitive impairment Acute R41.89 Osteoarthritis of left ankle Acute M19.072 Pain in right foot Acute M79.671 Pain in left foot Acute M79.672 Ingrown toenail Acute L60.0 Tinea pedis Acute B35.3 Heart failure Acute I50.9 Left knee DJD Acute M17.12 NINA (obstructive sleep apnea) Chronic G47.33 CKD stage 3 secondary to diabetes Acute E11.22, N18.30 Pulmonary hypertension Acute I27.20 Periodic limb movement disorder Acute G47.61 Onychia and paronychia of toe Acute L03.039 Nail dystrophy Acute L60.3 ASCVD (arteriosclerotic cardiovascular disease) Chronic I25.10 COPD (chronic obstructive pulmonary disease) Chronic J44.9 BMI 40.0-44.9, adult Acute Z68.41 Diabetic retinopathy Acute E11.319 Diabetes type 2, controlled Acute E11.9 Uses hearing aid Acute Z97.4 Dental decay Acute K02.9 Xerostomia Acute R68.2 Sensorineural hearing loss of both ears Acute H90.3 Hyperlipidemia Acute E78.5 Hypertension Chronic I10 Edema Acute R60.9 Anemia Chronic D64.9 Bilateral hydrocele Acute N43.3 Medical History Medical History Dementia Per D-I-L in the beginning stages, but still signs for himself Pain, joint, knee, right CKD (chronic kidney disease), stage III Atherosclerosis of coronary artery Pain in thoracic spine Arthralgia of ankle Idiopathic osteoarthritis Hydrocele of testis Mlaick hematuria Posterior rhinorrhea Essential hypertension Hearing loss Anemia, iron deficiency Type 2 diabetes mellitus Tubulovillous adenoma of colon Foreign body of ear, left Pain, foot Malfunction of myringotomy tube Obesity Lumbosacral strain Nasal congestion Occult blood in stools Back pain Sciatica Constipation Surgical History Surgical History Status post surgical removal of nail matrix of toe of right foot Tobacco Smoking/Tobacco Use Status: Former Tobacco Use Passive smoking exposure: No Alcohol Alcohol Intake: former Substance Use Substance use: Never Substance use type: does not use Vital Signs and Lab Results Vital Signs Most Recent Vital Signs in EMR: Temp Pulse Resp BP Pulse Ox 36.4 C L 62 16 113/58 L 98 10/23/24 07:15 10/23/24 07:15 10/23/24 07:15 10/23/24 07:15 10/23/24 07:15 Lab Results Complete Metabolic Panel: Magnesium, (1.8-2.4) 1.6 mg/dL L 09/24/24, 09:00 Infectious Disease: HIV 1&2 Ag/Ab, 4th Gen, (Negative) Negative 09/24, 09:00 Hepatitis C Antibody, (Negative) Negative 5, 09:00 Anesthesia Assessment and Plan Anesthesia History Personal History: No History of Anesthesia Complications Family History: No Family History of Anesthesia Complications Exercise Tolerance Exercise Tolerance: Metabolic Equivalents<4 Cardiac & Pulmonary Exam Cardiac Exam: Normal S1/S2 Heart Sounds Pulmonary Exam: Clear Bilateral Breath Sounds Implantable Cardiac Device Does patient have a Pacemaker or an ICD?: No Airway Exam Known Difficult Airway: No Mallampati Class: 3 Mouth Opening: Normal (> 3cm) Thyromental Distance: Greater than 3 cm Neck Range of Motion: Full ROM Neck Circumference: Thick Teeth Condition: Normal Dentition ASA Classification ASA Score: ASA 3 Emergency Case?: No NPO Status NPO Status: NPO Clears >2 hours, Solids >8 hours Anesthesia Plan Resuscitation Status: Full Code Anesthesia Technique: MAC Anesthesia Airway Planned: Natural Airway Monitors Used: Standard Monitors Preoperative Comments:: 79 yo male for cataract. No change in health history, would like to proceed without MKO. Sig PMHx: pHTN, COPD, NINA, CKDIII, DM2. Previous Anes: - cataract, no MKO.
[2024-10-23 07:15] VITALS: BP 113/58; PULSE 62; RESP 16; TEMP 36.4; O2SAT 98
[2024-10-23] MEDS: Tropicam./Phenyleph. (1/2.5%) 5 ML BTL OD ×3 (07:23→07:34)
[2024-10-23 08:34] VITALS: BMI 38.2
[2024-10-23] MEDS: Povidone-Iodine Ophth 30 ML BTL (09:39)
[2024-10-23] MEDS: Lidocaine 1% Pres-Free 5 ML VIAL (09:43)
[2024-10-23] MEDS: Duovisc Viscoelastic System EACH 1 EACH (09:44)
[2024-10-23] MEDS: Phenylephrine/Lidocaine (15/10) MG/ML 1 ML VIAL (09:44)
[2024-10-23] MEDS: Tetracaine 0.5% 4 ML BTL OD (09:45)
[2024-10-23] MEDS: Balanced Salt Soln.-PLUS 500 ML BAG OP (09:45)
[2024-10-23] MEDS: Moxifloxacin-PF 1 MG/ML VIAL (09:57)
[2024-10-23] MEDS: Prednisolone 1%, Moxifloxacin 0.5%, Bromfenac 0.09% 5.6ML BTL OD (09:58)
--- NOTE | 2024-10-23 10:03 | W.PM.DSUDISC ---
Date of service: 10/23/24 Discharge Plan Disposition Patient Disposition: Home Discharge Details Attending Provider: Chase Paul Primary Care Provider: Mara Anton Home Meds and New Rx's Prescriptions: No Action albuterol sulfate [Ventolin HFA] 90 mcg/actuation HFA aerosol inhaler 2 puff IH Q4H PRN omeprazole 20 mg capsule,delayed release(DR/EC) 20 mg PO DAILY Janumet XR 50-1,000 mg tablet, ER multiphase 24 hr 1 tab PO BID atorvastatin 40 mg tablet 40 mg PO DAILY atenolol 100 mg tablet 100 mg PO DAILY aspirin [Adult Low Dose Aspirin] 81 mg tablet,delayed release (DR/EC) 81 mg PO DAILY (DME) lancets [OneTouch UltraSoft Lancets] Misc See Rx Instructions .ROUTE .MEDSUPPLY Qty: 50 Rx Instructions: As directed (DME) OneTouch Ultra Blue Test Strip Strip See Rx Instructions .ROUTE .MEDSUPPLY Qty: 10 Rx Instructions: As directed fluticasone propionate 50 mcg/actuation spray,suspension 2 spray intranasal DAILY Rx Instructions: administer into each nostril terazosin 5 mg capsule 5 mg PO DAILY Trelegy Ellipta 100-62.5-25 mcg blister with device 1 inh inhalation DAILY glucosamine-chondroitin [Osteo Bi-Flex] 250-200 mg tablet See Rx Instructions PO .QD Rx Instructions: orally QD; spironolactone 25 mg tablet 25 mg PO DAILY ketoconazole 2 % cream 1 applic topical DAILY 90 Days Qty: 60 3RF Rx Instructions: Apply to toenails once daily metolazone 2.5 mg tablet 2.5 mg PO DAILY magnesium 200 mg tablet 400 mg PO BID ropinirole 0.5 mg tablet 0.5 mg PO DAILY Ozempic 1 mg/dose (2 mg/1.5 mL) pen injector 1 mg subcut QWEEK loratadine 10 mg tablet 10 mg PO DAILY (DME) custom ankle brace See Rx Instructions .Route .MEDSUPPLY Qty: 1 0RF Rx Instructions: As directed chlorthalidone 25 mg tablet 25 mg PO DAILY cyanocobalamin (vitamin B-12) 1,000 mcg capsule 1,000 mcg PO DAILY donepezil 5 mg tablet 5 mg PO HS sacubitril-valsartan [Entresto] 24-26 mg tablet 1 tab PO BID ipratropium-albuterol 0.5 mg-3 mg(2.5 mg base)/3 mL solution for nebulization 3 ml inhalation Q6H PRN potassium chloride 20 mEq tablet extended release 20 meq PO DAILY Discharge Instructions Stand Alone Forms: DSU Post-Op Cataract, Halima Ghosh (DSU) Discharge Orders Discharge Orders: Discharge Order (Routine); Ordered 10/23/24 Ordered By: Chase Paul DS: Diagnosis Discharge Diagnosis (1) Nuclear age-related cataract, right eye: Status: Resolved
--- NOTE | 2024-10-23 10:04 | ROE_ITS ---
Operative Note Operative Note PRE-OP DIAGNOSIS: Nuclear cataract, right eye POST-OP DIAGNOSIS: same PROCEDURE: Cataract extraction using phacoemulsification with intraocular lens implant, right eye SURGEON: Chase Paul ANESTHESIA TYPE: Local By Surgeon and MAC Refer to Anesthesia Record ESTIMATED BLOOD LOSS: 0 PATHOLOGY: none sent COMPLICATIONS: None Patient was transported to: same day Patient's condition: stable Implants: Ham [employer] [id number] Indications: Progressive decreased vision due to cataract, right eye Procedure Description: CATARACT SURGERY OPERATIVE REPORT PREOPERATIVE DIAGNOSIS: Nuclear cataract, right eye POSTOPERATIVE DIAGNOSIS: Same OPERATION: Cataract extraction using phacoemulsification with posterior chamber intraocular lens implant, right eye. IOL: IOL An/Syq 13 Nav/C2 Operator/Model: Ham [employer] [id number] IOL Power: + 21.5 diopters IOL Serial Number: [id number] Optic Diameter: 6.0mm Haptic/Overall Diameter: 13.0mm PHACO INFO: Ham [employer] Vision System with OZil and Active Fluidics Cumulative Dispersed Energy (CDE): 8.89 seconds SURGEON: Chase Paul MD, VAZQUEZ ANESTHESIA: Monitored Anesthesia Care (MAC), with local sub-tenon's anesthetic infiltration COMPLICATIONS: None SPECIMENS: None INDICATIONS FOR PROCEDURE: Patient is a 79-year-old male with history of diminished visual acuity in both eyes secondary to the development of bilateral cataracts. He has already undergone cataract surgery in the left eye and is doing well postoperatively. He now presents for cataract surgery in the right eye. See office notes for detailed information. PROCEDURE: The correct surgical eye was identified and marked as the right eye and the pupil was dilated in the preoperative area using mydriatics and cycloplegics. The dilated pupil size was 6.0 mm. The patient elected to proceed without oral sedation. The patient was brought to the operating room where cardiopulmonary monitoring was instituted and surgical time-out was performed, confirming the correct operative eye and IOL power. Topical anesthesia was administered and ophthalmic povidone-iodine 5% was instilled into the conjunctival fornices. The zaria-ocular area was prepped with Betadine 10% solution and draped in the usual sterile fashion for intraocular surgery, including an aperture drape. A Tegaderm transparent film dressing was cut in half and used to cover the lashes and lid margins. Care was taken to sequester the lashes and lid margins under the Tegaderm dressing. A lid speculum was placed between the lids of the operative eye and the Ham Lux[employer] Revalia operating microscope was maneuvered into position. Darius scissors were then used to make a conjunctival buttonhole approximately 6mm posterior to the limbus in the inferonasal quadrant. Blunt dissection was carried out to expose bare sclera, and a blunt-tipped sub-tenon?s anesthesia cannula was introduced and passed posteriorly along the globe where non- preserved plain lidocaine was injected into posterior sub-Tenon?s space. A sideport knife was used to make a paracentesis port. Intraocular phenylephrine/lidocaine was injected into the anterior chamber. The anterior chamber was then filled with viscoelastic. A keratome knife was used to construct a two--plane clear corneal tunnel extending 2.0mm into clear cornea. A flap was raised on the anterior capsule and capsulorhexis forceps were used to complete a continuous curvilinear capsulorhexis of 5.0 mm. Balanced salt solution was then used to perform cortical cleaving hydrodissection and nuclear hydrodelineation until the lens could be freely rotated within the capsular bag. The lens nucleus was then disassembled and r emoved within the capsular bag and iris plane using phacoemulsification. Residual cortical material was removed using the I/A handpiece. The posterior capsule was carefully polished to remove as much residual lens epithelial cells as safely possible. The capsular bag was then inflated and the anterior chamber deepened with cohesive viscoelastic. The lens implant described above was inserted into the capsular bag using the Ham [employer] Injector. A Kuglen hook was used to dial the IOL into position. Residual viscoelastic was then removed first from posterior to the IOL, then from the anterior chamber using the I/A handpiece. The lens implant was noted to center nicely within the capsular bag. The incisions were stromally hydrated, and the anterior chamber was reformed using BSS. Then 0.5cc of moxifloxacin 1.0mg/ml were injected into the capsular bag and anterior chamber. The incisions were checked with a Weck spear and found to be secure. Several drops of ophthalmic povidone-iodine 5% were then applied to the eye followed by two drops of combination steroid/NSAID/antibiotic solution. The drapes were removed and a clear plastic protective eye shield was placed over the eye. The patient was then returned to Same Day Surgery in stable condition. Date of Procedure: 10/23/24
[2024-10-23 10:07] VITALS: BP 122/61; PULSE 99; RESP 16; TEMP 36.4; O2SAT 99
--- NOTE | 2024-10-23 10:10 | W.ANESPOSTOP ---
Postoperative Evaluation Date, Time and Location Date Performed: 10/23/24 Time Performed: 10:10 Patient Location: Day Surgery Unit Vital Signs Most Recent Imported Vital Signs: Most Recent Vital Signs Temp Pulse Resp BP Pulse Ox 36.4 C L 99 H 16 122/61 99 10/23/24 10:07 10/23/24 10:07 10/23/24 10:07 10/23/24 10:07 10/23/24 10:07 Pain Score Most Recent Pain Score: Most Recent Pain Score Pain Level 0 10/23/24 10:07 Assessment Mental Status: Awake (Alert & Oriented to Patient Baseline) Airway and Respiratory Function: Patent airway with normal (patient baseline) respiratory exam Cardiovascular Function: Hemodynamically Stable Hydration Status: Adequately Hydrated Nausea & Vomiting: No Nausea or Vomiting Pain: Pt. Denies Any Pain Peripheral Nerve Block: Patient did not receive a nerve block
== END 2024-10-23 10:26 | disposition home or self-care (01) ==
LOC: SUR 07:07
PROVIDERS: PCP Physician Assistant; Visit Provider Ophthalmology
PROC: (CPT 66984; principal; 2024-10-23 10:00)
DX: H25.11 Age-related nuclear cataract, right eye (principal); Z98.42 Cataract extraction status, left eye
CPT/HCPCS: 66984; 00123; V2632; J2003

== ENCOUNTER 2024-10-28 19:41 | Outpatient (REF) | payer MEDICARE, SELFPAY ==
[2024-10-28 20:46] LABS: Anion Gap 6.8 mmol/L (3-11); BUN 65 mg/dL (7-18); CO2 33.2 mmol/L (21.0-32.0); Calcium 9.5 mg/dL (8.5-10.1); Chloride 104 mmol/L (98-107); Estimated GFR 23.54 (mL/min/1.73m2); Glucose 138 mg/dL (74-106); Magnesium 1.8 mg/dL (1.8-2.4); Potassium 4.4 mmol/L (3.5-5.1); Sodium 144 mmol/L (136-145)
== END 2024-10-28 19:42 | disposition home or self-care (01) ==
LOC: NCHCN 19:41
PROVIDERS: PCP Physician Assistant; Visit Provider Physician Assistant
DX: E83.42 Hypomagnesemia (principal); I10 Essential (primary) hypertension
CPT/HCPCS: 80048; 83735

== ENCOUNTER → 2024-11-03 12:34 | Outpatient (BNVA) | payer MEDICARE, SELFPAY | PROVIDERS: PCP Physician Assistant; Referring Provider Physician Assistant; Visit Provider Urology | DX: R31.0 Gross hematuria (principal) | CPT/HCPCS: 99213; 81002 ==

== ENCOUNTER 2025-01-12 14:14 | Outpatient (REF) | payer MEDICARE, SELFPAY ==
[2025-01-12 19:36] LABS: Abs Immature Grans 0.02 10^3/uL (0.0-0.06); HCT 31.4 % (40.0-50.0); HGB 9.9 g/dL (13.5-17.5); Immature Grans % 0.3 %; MCH 27.0 pg (27.0-33.0); MCHC 31.5 % (32.0-36.0); MCV 86 fL (80-95); MPV 10.2 fL (8.0-11.0); Platelet Count 258 10^3/uL (130-400); RBC 3.66 10^6/uL (4.36-5.78); RDW 14.3 % (11.8-14.1); RDW-SD 44.7 fL; WBC 6.92 10^3/uL (4.4-10.8)
[2025-01-12 20:08] LABS: ALT 15 U/L (16-63); AST 15 U/L (15-37); Albumin 3.1 g/dL (3.4-5.0); Alkaline Phosphatase 72 U/L (46-116); Anion Gap 9.3 mmol/L (3-11); BUN 54 mg/dL (7-18); Bilirubin, Total 0.6 mg/dL (0.2-1.0); CO2 29.7 mmol/L (21.0-32.0); Calcium 9.0 mg/dL (8.5-10.1); Chloride 102 mmol/L (98-107); Glucose 175 mg/dL (74-106); Iron 41 ug/dL (65-175); Magnesium 2.2 mg/dL (1.8-2.4); Potassium 4.1 mmol/L (3.5-5.1); Sodium 141 mmol/L (136-145); Total Iron Binding Capacity 253 ug/dL (250-450); Total Protein 6.8 g/dL (6.4-8.2); Transferrin Sat 16 % (20-55); Uric Acid 10.7 mg/dL (3.5-7.2)
[2025-01-12 20:51] LABS: Ferritin 170 ng/mL (26-388); Vitamin D 25 Total 35 ng/mL (30-100)
== END 2025-01-12 14:15 | disposition home or self-care (01) ==
LOC: LBN 14:14
PROVIDERS: PCP Physician Assistant; Visit Provider Internal Medicine Nephrology
DX: N18.32 Chronic kidney disease, stage 3b (principal)
CPT/HCPCS: 80053; 82306; 82728; 83540; 83550; 83735; 84100; 84550; 85025